=== PATIENT | male | born 1995 | race Caucasian/White ===

== ENCOUNTER → 2021-01-08 | Outpatient (CLI) | payer OTHER ==
--- NOTE | 2021-01-08 08:49 | PFTRPT ---
Height: 70.00 Inches Weight: 170.00 Lbs BSA: 1.95 Diagnosis: R06.00 DATE: 01/08/2021 ORDERING PHYSICIAN: Lisa Cunningham Pre and post bronchodilator studies have excellent technical quality. Forced vital capacity is normal. FEV1 is in proportion. Obstructive index is therefore normal. Expiratory limit of the flow-volume loop is normal. No significant bronchodilator response is identified. Total lung capacity is normal. Residual volume generally only minimally out of proportion. Diffusing capacity is normal. No hemoglobin available for correction Airway resistance and conductance are normal. IMPRESSION: Essentially normal study. MTDD
== END ==
LOC: M CARPUL 08:03
PROVIDERS: ATTEND Physician Assistant
DX: R06.00 Dyspnea, unspecified (principal)

== ENCOUNTER → 2021-02-14 | Outpatient (CLI) | payer OTHER ==
[~2021-02-14] MED LIST: METHACHOLINE KIT (J7674) INH ONE
--- NOTE | 2021-02-14 11:05 | PFTRPT ---
Height: 70.00 Inches Weight: 170.00 Lbs BSA: 1.95 Diagnosis: DYSPNEA DATE: 02/14/2021 ORDERED BY: JONATHAN Garcia QUALITY: Study of excellent technical quality. PROCEDURE: Under protocol, methacholine was administered. At a dose of 2.5 mg or 13.875 CDUs, a 23% decline in the FEV1 was noted. PC of 1.31 is significant. Flow rates did return to baseline post bronchodilator administration. IMPRESSION: Positive methacholine challenge study. MTDD
== END ==
LOC: M CARPUL 10:20
PROVIDERS: ATTEND Physician Assistant
DX: R06.00 Dyspnea, unspecified (principal)
CPT/HCPCS: 94070; J7674